=== PATIENT | female | born 1945 | race Caucasian/White ===

== ENCOUNTER 2024-10-05 07:47 | Day surgery (SDC) | payer MEDICARE ==
[~2024-10-05 07:47] MED LIST: Midazolam 1 MG/ML 2 ML SDV ONE; Propofol 200 MG/20 ML SDV ONE; fentaNYL 100 MCG/2 ML SDV ONE
[2024-10-05 08:13] LABS: PLATELET COUNT,PLT 181.0 K/uL (130-375); RED BLOOD CELL COUNT 3.75 M/uL (3.77-5.24); WHITE BLOOD CELL COUNT,WBC 5.2 K/uL (3.2-11.0)
[2024-10-05] MEDS: Nozin Nasal Sanitizer NASBOTH SCH (08:32)
[2024-10-05 08:33] LABS: A/G RATIO 1.0 (1.2-2.2); ALANINE AMINOTRANSFERASE,ALT 22 U/L (12-78); ASPARTATE AMNIOTRANSFERASE,AST 19 U/L (15-37); BILIRUBIN TOTAL 0.4 mg/dL (0.2-1.0); BLOOD UREA NITROGEN,BUN 18 mg/dL (7-18); CARBON DIOXIDE,CO2 29 mmol/L (21-32); CHLORIDE,CL 105 mmol/L (100-108); CREATININE 0.8 mg/dL (0.6-1.0); EST CRCL DRUG DOSING (CG) 52.15 mL/min; ESTIMATED GFR 75 mL/min (>60); GLUCOSE RANDOM 89 mg/dL (74-106); POTASSIUM,K 3.7 mmol/L (3.6-5.2); PROTEIN TOTAL,TP 6.8 g/dL (6.4-8.2); SODIUM,NA 142 mmol/L (140-148)
[2024-10-05] MEDS: Lactated Ringers 1,000 ML IV SCH (08:54)
[2024-10-05] MEDS: Clindamycin in 0.9 % Sod Chlor 900 MG in Premix Bag 1 BAG IV ONE (10:45)
[2024-10-05] MEDS ORDERED: ePHEDrine 50 MG/ML SDV ONE (11:44)
[2024-10-05] MEDS: Tranexamic Acid 600 MG in Sodium Chloride 0.9% 50 ML IV ONE (12:01)
[2024-10-05] MEDS ORDERED: Ondansetron 4 MG/2 ML SDV IVPUSH PRN (13:13)
[2024-10-05] MEDS ORDERED: Ketorolac 30 MG/ML SDV IVPUSH SCH (13:15)
[2024-10-05] MEDS: Ketorolac 15 MG/ML SDV IVPUSH SCH (15:53)
[2024-10-05] MEDS: Clindamycin in 0.9 % Sod Chlor 900 MG in Premix Bag 1 BAG IV SCH (17:46)
[2024-10-05] MEDS ORDERED: Nozin Nasal Sanitizer NASBOTH SCH (21:00)
[2024-10-06] MEDS ORDERED: Non-Formulary Medication 1 Each (Lactobacillus Acidophilus [Probiotic] 1 EACH Capsule) PO SCH (09:00)
[2024-10-06] MEDS: Aspirin 325 MG Tab.EC PO SCH (09:39)
[2024-10-06] MEDS: Lactobacillus Rhamnosus GG (Probiotic) Cap PO SCH (09:39)
== END 2024-10-06 14:40 | disposition home or self-care (01) ==
LOC: JP.SDS 07:47 → JP.MS 13:13 → JP.SDS 10-06 14:40
PROVIDERS: ATTEND Specialist
DX: M16.11 Unilateral primary osteoarthritis, right hip (principal); E11.9 Type 2 diabetes mellitus without complications
CPT/HCPCS: 20985; 27130; 36415; 72170; 80053; 85027; 93005; 93010; 97110; 97161; 97165; 97530; 97535; A4217; A9270; C1713; C1776; J0737; J1885; J2250; J2704; J3010; J7030; J7120; 01214-QZ; J0665